=== PATIENT | male | born 1945 | race Caucasian/White ===

== ENCOUNTER 2017-12-06 13:17 | Observation (INO) | payer MEDICARE ==
[2017-12-06] MEDS ORDERED: Acetaminophen TAB* 325 MG PO PRN (14:22)
--- NOTE | 2017-12-06 15:03 | CONSULT ---
Subjective Date of Service: 12/06/17 Interval History: Date of consult 12/06/2017 Service: Hospitalist PMD: Wendy Ponce NP Calender Let Off Helper: Patient identifies as Dr. Juventino Andrade, has not seen in at least several years CC: N/V, vertigo Reason for consult: Bradycardia HPI. Mr. Murray is a 72 year old man admitted to [facility] 2 days ago with nausea vomiting and dizziness with low grade fever felt to be gastroenteritis. He was treated with fluids and anti-emetics. He was noted with sinus bradycardia to 40 bpm at the very lowest in overnight hours when expected to be sleeping and at some points during the day he had vomiting associated with lightheaded and sinus bradycardia into the 40's. There was no significant pauses or evidence of heart block. Aside from this episode he has felt well. 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 He is active in sports locally. At rest unprovoked his baseline heart rate seems to be sinus in the low 50's here when awake. Prior to this episode he has had no syncope, presyncope or unprovoked dizziness. He has no exertional chest discomfort. He sometimes has chest awareness at rest. He has had evaluations for chest discomfort multiple in the past. There is an EKG in the medical record from 11/2013 in which he had sinus bradycardia at 47 bpm so he has had longstanding sinus bradycardia that he has tolerated very well, he had sinus bradycardia on a 2005 ekg as well. He has had 3 cardiac catheterizations in the past and has seen Dr. Andrade in the past. He is not currently on an aspirin and statin. An echocardiogram today showed normal LV size and function with no significant valvular disease. Pmhx Hypothyroidism BPH GERD Depression PTSD CAD, last angiogram 2004 Dr. Andrade LAD mid bridge, distal 50% lad lesion, 30% RCA lesion, last unremarkable chest discomfort normal dobutamine stress echo 2011. Soc Hx: no tobacco use or excessive alcohol use, x 4 years. Vietman allergies: nkda family hx: non-contributory Medications Active Medications: Acetaminophen (Tylenol Tab*) 650 mg PO Q4H PRN PRN Reason: FEVER/PAIN Heparin Sodium (Porcine) (Heparin Vial(*)) 5,000 units SUBCUT Q8HR DENNIS Sodium Chloride (Ns 0.9% 1000 Ml*) 1,000 mls @ 100 mls/hr IV PER RATE DENNIS Levothyroxine Sodium (Synthroid Tab*) 175 mcg PO 0600 DENNIS Omeprazole (Prilosec Cap*) 20 mg PO DAILY DENNIS Sertraline HCl (Zoloft*) 25 mg PO DAILY DENNIS Tamsulosin HCl (Flomax Cap*) 0.4 mg PO DAILY [facility] Home Medications: Omeprazole CAP* [Prilosec CAP*] 20 mg PO DAILY 09/12/13 [History Confirmed 12/06] Tamsulosin CAP* [Flomax CAP*] 0.4 mg PO DAILY 09/12/13 [History Confirmed ] Levothyroxine TAB* [Synthroid TAB*] 175 mcg PO DAILY 12/06/17 [History Confirmed 12/06/17] Sertraline* [Zoloft*] 25 mg PO DAILY 12/06/17 [History Confirmed 12/06/17] Review of Systems - Measurements Intake and Output: Intake and Output Last 24 Hours 12/04/17 12/05/17 12/06/17 12/07/17 06:59 06:59 06:59 06:59 Intake Total 0 Balance 0 Weight 203 lb 8 oz Intake: Oral 0 - Review of Systems Constitutional Symptoms: Negative: Weight Gain, Weight Loss, Fatigue Dermatology: Negative: Rash, Skin Lesions HEENT: Negative: Change in Hearing, Vertigo Eyes: Negative: Change in Vision, Double Vision Thyroid: Negative: Heat Intolerance, Sweatiness, Constipation, Palpitations, Weight Loss, Weight Gain Pulmonary: Negative: Cough, Sputum, Hemoptysis, Wheezing, Respiratory Distress, Shortness of Breath, COPD Cardiology: Negative: Shortness of Breath, Palpitations, Swelling of Ankles, Peripheral Vascular Dis, Edema, Syncope, Claudication, Paroxysmal Nocturnal Dyspnea, Orthopnea Gastroenterology: Positive: Abdominal Pain, Nausea, Vomiting Genital - Urinary: Negative: Dysuria, Hematuria Musculoskeletal: Negative: Joint Pain, Joint Stiffness Endocrinology: Negative: Obesity, Diabetes, Polydipsia, Polyuria Hematologic/Lymphatic: Negative: Hx Leukemia, Hx Lymphoma, Use of Anticoagulant, Use of Antiplatelet Drugs Neurology: Negative: Diplopia, Dizziness, Change in Speech, Unexplained Weakness, Hx of Stroke\TIA Psychiatry: Negative: Unusual Anxiety, Suicidal Ideation Allergic/Immunologic: Negative: Hx HIV, Immunocompromise Review of Systems Statement: All other review of systems negative, unless stated above. Objective Vital Signs: Temp Pulse Resp BP Pulse Ox 98.3 F 73 16 141/75 95 12/06/17 14:40 12/06/17 14:40 12/06/17 14:40 12/06/17 14:40 12/06/17 14:40 Oxygen Devices in Use Now: None Appearance: nad, pleasant Ears/Nose/Mouth/Throat: Clear Oropharnyx Neck: NL Appearance and Movements; NL JVP, Trachea Midline Respiratory: Symmetrical Chest Expansion and Respiratory Effort, Clear to Auscultation Cardiovascular: NL Sounds; No Murmurs; No JVD, RRR, No Edema Abdominal: NL Sounds; No Tenderness; No Distention Extremities: No Edema Skin: No Rash or Ulcers Neurological: Alert and Oriented x 3 Laboratory Results: 12/04/2017 na 142, k 4.1, cr 1.1 glucose 144 lfts normal wbc 11.3, hgb 16.3, plts 268 12/05/2017 cTnI 0.009 with ck-mb 1.9 tsh 2.15 08/2017 labs tri 97, tchol 181, ldl 124, hdl 38 hgba1c 5.7 EKG Data: ekg sinus bradycardia 57 bpm, no acute findings ekg 11/2005: sinus bradycarda 56 bpm Assessment/Plan It appears patients episodes are related to a vagal response from vomiting. He has no syncope now or as an outpatient and his longstanding sinus bradycardia is otherwise stable except transiently worse during these episodes. I would focus evaluation and treatment on his GI illness. A pacemaker is not indicated. Regarding his CAD, I would start aspirin 81 mg po daily. He does not want to take a statin at this time. He says he is going to call Dr. Andrade' s office next week to make an appointment because he has not seen him in awhile. Thank you for allowing me to participate in the cardiovascular care of this patient. Please do not hesitate to contact me with questions or concerns.
--- NOTE | 2017-12-06 15:14 | RAD ---
Indication: RIGHT lower lobe wheezing. COPD. Cardiac disease. Comparison: May 02, 2010 Technique: Upright AP 1444 hours Report: Elevated lung volumes. No focal pulmonary lesion, compelling alveolar consolidation, pleural effusion, pneumothorax. The heart, pulmonary vasculature, and mediastinal contours are unremarkable. IMPRESSION: #. Stigmata of obstructive lung disease. No acute pulmonary or cardiac process evident.
--- NOTE | 2017-12-06 16:00 | HP ---
CC: Wendy Ponce NP; Dr. Troy; Dr. Zapata * HISTORY AND PHYSICAL: DATE OF ADMISSION: 12/06/17 PRIMARY CARE PROVIDER: Wendy Ponce NP ATTENDING PHYSICIAN WHILE IN THE HOSPITAL: Swetha Canseco MD * (report dictated by Smith Hunter NP) CONSULTING CARDIOLOGISTS: Dr. Troy and Dr. Zapata CHIEF COMPLAINT: 1. Bradycardia. 2. Nausea, vomiting. HISTORY OF PRESENT ILLNESS: Mr. Murray is a 72-year-old male patient. He has a history of hypothyroidism, hypertension, GERD, BPH, history of skin cancer, and a history of prolonged grief disorder. He is coming in from [facility] today under direct admission. He initially presented to [facility] on 12/04/17, with complaints of nausea and vomiting. He says to me that he has had episodes of nausea and vomiting intermittently pretty much on a yearly basis that does resolve on its own; however, this episode of nausea and vomiting was different in the sense that he woke up on Saturday, he had an episode, he was very nauseous , he felt dizzy, his symptoms were present for about 12 hours prior to coming into the [facility]. He said prior to this he had been feeling well. He has not had any abdominal pain. No nausea or vomiting. No chest pain. He denied any chest pain at all. He says he felt dizzy. He denied having any shortness of breath. No recent cough, fevers, or chills and he denied having any diarrhea. He said his last normal bowel movement actually was this morning prior to transfer. He was evaluated at [facility], he was admitted for intractable nausea and vomiting. He refused CT brain at that point and since being at [facility] he has had intermittent issues of nausea and vomiting and dizziness. He denied chest pain to me, but yesterday it was noted that he was bradycardic down as low as in the upper 30s. The patient says that he has had intermittent episodes of dizziness and lightheadedness. He denied having any chest pain or shortness of breath. He has episodes of nausea this morning, but he says it got better when he ambulated and tried walking. He does admit to having a weight loss over the last year, he says over 100 pounds. He denies having any dysuria, frequency, or any other symptoms. He has had just nausea and vomiting and no abdominal discomfort. Because of the bradycardia, we were asked to evaluate for admission and have a cardiology consult for possible pacemaker. PAST MEDICAL HISTORY: Significant for: 1. Hypothyroidism. 2. Hypertension. 3. GERD. 4. Prolonged grief disorder. 5. History of skin cancer. 6. BPH. PAST SURGICAL HISTORY: He has had heart catheterization with Dr. Andrade in 2004. No other surgeries. MEDICATIONS: Home meds according to the list that was provided include: 1. Synthroid 175 mcg p.o. daily. 2. Zoloft 25 mg daily. 3. Prilosec 20 mg daily. 4. Flomax 0.4 mg p.o. daily. ALLERGIES TO MEDICATIONS: No known drug allergies. FAMILY HISTORY: Both his parents had coronary artery disease. SOCIAL HISTORY: He is a former smoker. He does not drink alcohol. The surrogate decision maker is his daughter. REVIEW OF SYSTEMS: There is no documented fever. He did admit to having a significant weight change. He denies having any double vision. He denies having any ear discharge. There was no rhinorrhea, no sore throat. No thyroid enlargement. Denies having any chest pain. He did admit to feeling dizzy. No shortness of breath, no orthopnea, no nocturnal dyspnea. He denied any abdominal pain. There was nausea with vomiting. There is no dysuria. There is no frequency. No seizure. He denied having any loss of consciousness. Review of 14 systems was completed, all others negative. PHYSICAL EXAMINATION GENERAL: At this time, Mr. Murray is a 72-year-old male patient. He appears to be well-nourished and well-developed. He is sitting in the ED stretcher. He does not appear to be in any acute distress. VITAL SIGNS: Blood pressure 141/75 with a pulse of 73, his pulse on tele now is 61; respirations were 16; O2 sat 95%; temperature 98.3. HEENT: Head: Atraumatic and normocephalic. Eyes: EOMs are intact. Sclerae anicteric and not pale. Throat: Oral mucosa appears to be moist. No oropharyngeal erythema. NECK: Supple. LUNGS: He did have some wheeze noted in the right lower base. He had equal diaphragmatic expansion. HEART: Sounds S1, S2. He had a regular rate and rhythm. No murmurs, rubs, or gallops. ABDOMEN: Soft, flat, nontender. Bowel sounds were present. EXTREMITIES: Pulses were 2+ throughout. He is moving all 4 extremities with 5/ 5 strength. NEUROLOGICAL: The patient is awake. He is alert and he is oriented x3. His tongue is midline. His transformation consultant were equal. He had no gross focal deficits. SKIN: Grossly intact. DIAGNOSTIC STUDIES/LAB DATA: I have these from [facility]. His WBC today was 12.61, on admission it was 11.13; his hemoglobin was 14.6; hematocrit was 43; platelet count of 211. Urine showed 2+ blood, 5 to 10 RBCs. Sodium was 140, potassium 3.6, chloride of 106, bicarb was 24, BUN 10, creatinine of 1, lactic 1.4, calcium 8.2. His CK was 109, CK-MB 1.9, troponin 0.09. TSH was 2.15. He had a chest x-ray, which showed mild hyperinflation, otherwise negative portable x-ray that was done yesterday. He does have rhythm strips noted in the chart that do show a sinus bradycardia happening mostly at nighttime. These are one of the strips that are reported from. Old medical records were reviewed. ASSESSMENT AND PLAN: Mr. Murray is a 72-year-old male patient coming into our hospital today under direct transfer from [facility] for bradycardia. He will be admitted under observation status for: 1. Bradycardia. Again, etiology is unclear. His TSH is normal. I am going to check his repeat TSH, mag, and his potassium here. It could be certainly related to undiagnosed sleep apnea. I do think we should get an overnight pulse oximetry. I am going to get a 12-lead EKG now. Cardiology has been consulted. I do not see any medications contributing to this. It certainly could be contributing to his symptoms of dizziness so we will continue to monitor him on telemetry. I did order an echo. I will cycle his troponins and I am also going to check orthostatic blood pressures. 2. Nausea, vomiting. Again, it is concerning he has had unexplained weight loss so I did order a CT abdomen and pelvis, also a CT brain given the fact he has been having intermittent episodes of dizziness as well. He is asymptomatic now so I think we will continue to monitor him. We will wait for these imaging studies to come back and we will continue to follow. I will get amylase and lipase levels as well and I will check a CMP. 3. Leukocytosis. Again, etiology is unclear. I am going to panculture the patient. It could be leukemoid reaction from the nausea and vomiting. I do not have any obvious source of infection. We will continue to monitor this. 4. History of hypothyroidism. I will continue his Synthroid. His TSH was stable, we are repeating that today. 5. Hypertension. Blood pressure is stable. He is not on any antihypertensives. We will monitor. 6. Gastroesophageal reflux disease. Continue PPI therapy. 7. History of benign prostatic hypertrophy. Continue meds as prescribed. 8. History of prolonged grief disorder and depression. Continue with Zoloft. 9. Skin cancer. Follow up with his PCP. 10. DVT prophylaxis: I did order heparin subcu. 11. Code status: DNR. 12. Fluids, electrolytes, and nutrition: He is n.p.o. pending the CT abdomen and pelvis. We will continue to follow. The goal diet will be a heart-healthy diet. TIME SPENT: Time spent on the admission was approximately 60 minutes, greater than half the time was spent [id number] with the patient obtaining my history and physical, other half time was spent going over the plan of care with the patient and implementing the plan of care. I discussed the plan of care with my attending, Dr. Canseco, she is in agreement. SMITH HUNTER NP [id number]/[facility] #: [id number] [place]
--- NOTE | 2017-12-06 16:22 | ECHO ---
Patient: MELVA CLEMENS [facility] Rec#: [id number] : 1945 Date: 12/06/2017 Age: 72y Height: 185.42 cm / 73.0 in Weight: 92.53 kg / 203.9 lbs Sex: M BSA: 2.17 Room#: [facility] Admit Date#: 12/06/2017 Type: Inpatient Referring: Smith Hunter NP Reading: Marlo Troy DO Stuffer: Celia Watters RDCS CC: Wendy Ponce NP Transthoracic Echocardiogram Indication: Abnormal EKG BP: 141/75 HR: 50 Rhythm: Bradycardia Findings History: COPD, CAD, former smoker, hypothyroid. Technical Comments: The study quality is fair. Completed at 1600. Left Ventricle: The left ventricular chamber size is normal. Mild concentric left ventricular hypertrophy is observed. Global left ventricular wall motion and contractility are within normal limits. There is normal left ventricular systolic function. The estimated ejection fraction is 60-65%. Abnormal left ventricular diastolic function is observed. Left Atrium: The left atrium is mildly dilated. Right Ventricle: The right ventricular chamber size and systolic function are within normal limits. Right Atrium: The right atrial cavity size is normal. Aortic Valve: The aortic valve is trileaflet. The aortic valve leaflets are mildly thickened. There is a trace of aortic regurgitation. There is no evidence of aortic stenosis. Mitral Valve: The mitral valve leaflets are mildly thickened. There is trace to mild mitral regurgitation. There is no evidence of mitral stenosis. Tricuspid Valve: The tricuspid valve leaflets are normal. There is a physiologic tricuspid regurgitation. Unable to estimate the right ventricular systolic pressure. There is no tricuspid stenosis. Pulmonic Valve: The pulmonic valve appears normal. There is a trace pulmonic regurgitation. There is no pulmonic stenosis. Pericardium: There is no significant pericardial effusion. Aorta: There is mild dilatation of the ascending aorta. There is no dilatation of the aortic arch. The aortic root is normal in size. Pulmonary Artery: The main pulmonary artery is not well visualized. Venous: The inferior vena cava appears normal in size. There is a greater than 50% respiratory change in the inferior vena cava dimension. Conclusions The left ventricular chamber size is normal. Mild concentric left ventricular hypertrophy is observed. There is normal left ventricular systolic function. The estimated ejection fraction is 60-65%. Global left ventricular wall motion and contractility are within normal limits. The left atrium is mildly dilated. The right ventricular chamber size and systolic function are within normal limits. No significant valvular abnormalities noted None prior for comparison at time of interpretation Measurements Name Value Normal Range RVIDd (AP) 2D 3.7 cm (0.9 - 2.6) IVSd (2D) 1.3 cm (0.6 - 1) LVPWd (2D) 1.2 cm (0.6 - 1) LVIDd (2D) 5.3 cm (3.6 - 5.4) LVIDs (2D) 3.5 cm - LV FS (2D) 34 % (25 - 45) Aortic Annulus 2.3 cm (1.4 - 2.6) Ao root diameter (2D) 3.5 cm (2.1 - 3.5) Ascending Ao 3.7 cm (2.1 - 3.4) Aortic arch 2.9 cm (1.8 - 3.4) LA dimension (AP) 2D 3.6 cm (2.3 - 3.8) LAd ISD 4CH 5 cm (2.9 - 5.3) LA ISD 4CH W 4.3 cm (2.5 - 4.5) Name Value Normal Range LA ESV SP 4CH (A/L) 57 ml - LA ESV SP 2CH (A/L) 77 ml - LA ESV BP (A/L) 69 ml - LA ESV BP (A/L) index 32 ml/m2 - LA ESV SP 4CH (MOD) 46 ml - LA ESV SP 2CH (MOD) 74 ml - Name Value Normal Range MV E-wave Vmax 0.52 m/sec - MV deceleration time 344.2 msec - MV A-wave Vmax 0.64 m/sec - MV E:A ratio 0.8 ratio - LV septal e' Vmax 0.09 m/sec - LV lateral e' Vmax 0.07 m/sec - LV E:e' septal ratio 5.78 ratio - LV E:e' lateral ratio 7.14 ratio - Name Value Normal Range AV Vmax 1.2 m/sec - AV VTI 22.7 cm - AV peak gradient 5.66 mmHg - AV mean gradient 2.57 mmHg - LVOT Vmax 1.04 m/sec - LVOT VTI 19.41 cm - LVOT peak gradient 4.36 mmHg - LVOT mean gradient 2.01 mmHg - JOSSE Vmax 0.9 m/sec - Name Value Normal Range MR Vmax 5.6 m/sec - MR VTI 163.3 cm - MR flow (PISA) 26.6 ml/sec - MR ERO 0.05 cm2 - MR PISA radius 0.3 cm - MR alias Vmax 42.4 cm/sec - Name Value Normal Range IVC diameter 2 cm - Name Value Normal Range PV Vmax 1.07 m/sec - PV peak gradient 4.63 mmHg -
[2017-12-06 16:48] LABS: Hematocrit 46 % (42-52); Hemoglobin 15.2 g/dl (14.0-18.0); Mean Corpuscular HGB Conc 33 g/dl (31-36); Mean Corpuscular Hemoglobin 30 pg (27-31); Mean Corpuscular Volume 90 fL (80-94); Mean Platelet Volume 8.2 um3 (7.4-10.4); Platelet Count 209 10^3/ul (150-450); Red Blood Count 5.14 10^6/ul (4.00-5.40); Red Cell Distribution Width 15 % (10.5-15); White Blood Count 12.6 10^3/ul (3.5-10.8)
[2017-12-06 16:57] LABS: INR 0.94 (0.77-1.02)
[2017-12-06] MEDS: NS 0.9% 1000 ML* 1,000 ML IV SCH (17:15)
[2017-12-06 17:16] LABS: EGFR Non-African American 79.1 (>60)
[2017-12-06] MEDS ORDERED: Iohexol 300* (CONTRAST) 10 ML SDV IV ONE (17:23)
[2017-12-06 17:32] LABS: ABS Basophils 0.1 10^3/ul (0-0.2); ABS Eosinophils 0.1 10^3/ul (0-0.6); ABS Lymphocytes 6.5 10^3/ul (1.0-4.8); ABS Monocytes 0.3 10^3/ul (0-0.8); ABS Neutrophils 5.5 10^3/ul (1.5-7.7); ABS Nucleated RBC 0 10^3/ul; Eosinophil % 1.2 % (0-6); Lymphocyte % 51.4 % (25-47); Nucleated Red Blood Cells % 0.3
--- NOTE | 2017-12-06 17:58 | RAD ---
INDICATION: Nausea and vomiting COMPARISON: None TECHNIQUE: Axial source images were obtained from the hemidiaphragms to the symphysis pubis following administration of oral and intravenous contrast. 123 mL Omnipaque 300 was utilized. Coronal and sagittal reconstructed images were acquired. Lung bases: The lung bases are clear. Liver: The liver is normal in size. There are no masses. There is no ductal dilatation. Gallbladder: There are no calcified gallstones. There is no evidence of wall thickening or pericholecystic fluid. Spleen: The spleen is normal in size. There are no masses. Pancreas: There is no focal pancreatic mass or ductal dilatation. Adrenal glands: There is no evidence of adrenal mass. Kidneys: The kidneys are normal in size and position. There are prompt nephrograms and there is prompt excretion bilaterally. There are no renal parenchymal masses. There is no evidence of nephrolithiasis. Adenopathy: There is extensive retroperitoneal and mesenteric the masses are essentially confluent in the retroperitoneum. The largest individual mesenteric masses measure up to 6 cm. There is also bilateral leg and inguinal lymphadenopathy. Fluid collections: There are no free or localized fluid collections. Vessels:There are atherosclerotic changes involving the aorta and iliac vessels. There is no focal aneurysm. The IVC appears normal. GI tract: There are no acute CT bowel findings. There is no obstruction. The stomach and small bowel appear normal. There are moderate diverticula of the descending and sigmoid colon. There are no CT findings of acute diverticulitis Pelvic organs: The prostate is enlarged and impresses upon the floor the bladder. Transverse prostate measurements are 4.9 x 6.6 cm Bladder: There are no intrinsic bladder masses. There is extrinsic mass effect on the floor the bladder produced by the enlarged prostate Abdominal and pelvic soft tissues: The extraperitoneal abdominal and pelvic soft tissues appear normal.. Osseous structures: There are no acute osseous findings. Other: None IMPRESSION: EXTENSIVE INFRADIAPHRAGMATIC LYMPHADENOPATHY. LYMPHOMA IS A PRIMARY DIAGNOSTIC CONSIDERATION.
--- NOTE | 2017-12-06 17:59 | RAD ---
INDICATION: Dizziness COMPARISON: CT brain September 22, 2004 TECHNIQUE: Noncontrast axial source images were acquired from the skull base to the vertex. FINDINGS: Ventricles/sulci: The ventricles and cisterns are normal in size and configuration for age. Brain parenchyma: There is no focal parenchymal finding, evidence of intracranial mass, or intracranial mass effect. Intracranial hemorrhage:None. Extra-axial spaces: There are no abnormal extra axial fluid collections or evidence of extra-axial mass. Calvarium: There is no calvarial fracture or other calvarial abnormality. Scalp: There is no evidence of scalp or extracalvarial soft tissue abnormality. Paranasal sinuses/mastoid: The paranasal sinuses and mastoid air cells are clear. Other: None. IMPRESSION: NO ACUTE INTRACRANIAL FINDINGS
[2017-12-06] MEDS: Aspirin EC TAB* 81 MG TAB.EC PO SCH (18:06)
[2017-12-06 20:40] LABS: Urine Appearance Clear; Urine Blood 2+ (Negative); Urine Color Straw; Urine Ketones Negative (Negative); Urine Protein Negative (Negative); Urine Red Blood Cell Trace(0-2/hpf) (Absent); Urine Urobilinogen Negative (Negative); Urine White Blood Cell Trace(0-5/hpf) (Absent)
--- NOTE | 2017-12-06 23:11 | PN ---
Hospitalist Progress Note Date of Service: 12/06/[address] abd of extensive adenopathy finding discussed finding with patient placed oncology consult, will need biopsy.
[2017-12-07] MEDS: Heparin VIAL(*) 5000 UNITS/ML VIAL (FIVE THOUSAND) SUBCUT SCH ×2 (00:54→05:21)
[2017-12-07] MEDS: NS 0.9% 1000 ML* 1,000 ML IV SCH (04:12)
[2017-12-07 05:31] LABS: ABS Basophils 0.1 10^3/ul (0-0.2); ABS Eosinophils 0.2 10^3/ul (0-0.6); ABS Lymphocytes 4.8 10^3/ul (1.0-4.8); ABS Monocytes 0.3 10^3/ul (0-0.8); ABS Neutrophils 4.5 10^3/ul (1.5-7.7); ABS Nucleated RBC 0 10^3/ul; Eosinophil % 1.8 % (0-6); Hematocrit 41 % (42-52); Lymphocyte % 48.9 % (25-47); Mean Corpuscular HGB Conc 34 g/dl (31-36); Mean Corpuscular Hemoglobin 30 pg (27-31); Mean Corpuscular Volume 89 fL (80-94); Mean Platelet Volume 7.8 um3 (7.4-10.4); Nucleated Red Blood Cells % 0.4; Platelet Count 185 10^3/ul (150-450); Red Blood Count 4.65 10^6/ul (4.00-5.40); Red Cell Distribution Width 15 % (10.5-15); White Blood Count 9.8 10^3/ul (3.5-10.8)
[2017-12-07 05:46] LABS: EGFR Non-African American 67.4 (>60)
[2017-12-07] MEDS ORDERED: Levothyroxine TAB* 175 MCG TAB PO SCH (06:00)
[2017-12-07] MEDS: Aspirin EC TAB* 81 MG TAB.EC PO SCH (07:52)
[2017-12-07] MEDS ORDERED: Omeprazole CAP* 20 MG PO SCH (09:00)
[2017-12-07] MEDS ORDERED: Tamsulosin CAP* 0.4 MG PO SCH (09:00)
[2017-12-07] MEDS ORDERED: Sertraline* 25 MG TAB PO SCH (09:00)
[2017-12-07 12:08] LABS: Uric Acid 4.1 mg/dL (4.4-7.6)
[2017-12-07 12:16] VITALS: BP 149/70
--- NOTE | 2017-12-07 15:05 | CONS ---
CC: Dr. Andrade; Wendy Ponce NP * MEDICAL ONCOLOGY/HEMATOLOGY CONSULTATION NOTE: DATE OF ADMISSION: 12/06/17. DATE OF CONSULT: 12/07/17. REASON FOR CONSULT: Adenopathy. HISTORY OF PRESENT ILLNESS: Mr. Murray is a 72-year-old male. He reports many years of intermittent episodes of nausea and vomiting when all the way back to when in college in 1981. He has maybe a couple of episodes per year. This year , these episodes have been slightly more frequent. Three days prior to admission, he had an episode when he got nauseous and dizzy. The day of admission, he presented to [facility] with what seemed to be almost intractable nausea and vomiting. He received Zofran with some improvement. His dizziness and lightheadedness were slightly improved. He did have an episode of bradycardia down into the 30s associated with the dizziness and lightheadedness. He was subsequently evaluated for his bradycardia by Dr. Troy of Cardiology. It was felt that this was likely vagal and related to episodes of nausea and vomiting. He has had sinus bradycardia in the past. He has had 3 previous cardiac catheterizations most recently in 2004 all of which were without significant abnormalities. He was not told by Dr. Troy that the episodes of bradycardia were of significance beyond being vagal from the vomiting. The patient had told Smith Hunter NP, that he had lost about approximately 100 pounds over 1 year. On more careful questioning, the patient reports that his was diagnosed with breast cancer approximately 10 years ago. She of her breast cancer about 4 years ago. He reports his weight was 280 pounds at the time his had passed. He had gained lots of weight due to a grief disorder in regard to his 's metastatic breast cancer. Reports that 1 year ago, his weight was down to 213. Weight at the hospital today reported at 203 pounds. Therefore a 10-pound weight loss from the last year. He denies any abdominal or back pain. He does report that he had symptoms back in September 2017 for which a workup was done at [facility] including MRI of the brain, carotid Dopplers, and CT scan of the chest, abdomen and pelvis. These results were to be sent to Wendy Ponce, his primary care provider. It was not sure that she ever read these reports. It is unclear as to exactly what study he had and I am not totally convinced that these studies were actually obtained at that time. PAST MEDICAL HISTORY: 1. Hypothyroidism for many years, hypertension well controlled, GERD on medications, history of skin cancer. He reports 3 previous melanomas on his back. While looking at the scars, it appeared to be more either benign or non- melanoma skin cancer surgeries. He does follow with Dr. Staci Diaz of Dermatology. 2. Benign prostatic hypertrophy. 3. Multiple previous hospitalizations to Psychiatry in March 2014, August 2013 , January 2012 and October 2003. He carries a previous diagnosis of both prolonged grief disorder and depression. He adamantly denies any homicidal or suicidal ideation. 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 PAST SURGICAL HISTORY: Cardiac catheterization, Dr. Andrade, 2004 and 2 prior cardiac catheterizations, and umbilical hernia repair, 2005. MEDICATIONS AT HOME: 1. Synthroid 175 mcg daily. 2. Zoloft 25 mg daily. 3. Prilosec 20 mg daily. 4. Flomax 0.4 mg daily. Since hospital, started on aspirin 81 mg daily. ALLERGIES: None. FAMILY HISTORY: His brother, Xavier, had CLL, was cared for through our office and about 5 years ago. Reports that his mother had liver cancer, although she was cared through [facility], I see no records of this, at age 75. Father Issa, he reports was cured of cancer and at the age of 83, although I again I see no records through the [facility] system. , Sherri of breast cancer about 4 years ago. SOCIAL HISTORY: The patient lives alone with a service dog for therapy and 3 other dogs. He is a former smoker. 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 Denies ever having any alcohol. Surrogate decision maker is his daughter. 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 REVIEW OF SYSTEMS: No fevers, chills, sweats. Weight loss as discussed above. Denies any headaches or visual changes. Denies any chest pain, any significant shortness of breath or palpitations. Episodes of dizziness as described above. Nausea and vomiting as described above. No abdominal pain. No significant change in bowel or bladder habits. No significant heartburn on medications. No urinary symptoms. Review of systems is otherwise negative except as discussed above. PHYSICAL EXAM: A 72-year-old male in no acute distress. Vital Signs: Blood pressure 116/66, pulse 48; earlier in the hospitalization having been mostly slightly higher and as noted above, more bradycardic at [place]. Afebrile. HEENT: PERRL. EOMI. No erythema or exudates. No palpable cervical or supraclavicular or inguinal adenopathy. Does have bilateral axillary adenopathy approximately 2 cm bilaterally along with some fat pads in the axilla. Heart: Regular rate and rhythm without murmurs, rubs or gallops. Lungs : Clear. Abdomen: Soft, nontender without masses or organomegaly. Extremities : No clubbing, cyanosis or edema. Back: No CVA or spinal tenderness. Evidence of previous skin biopsies in the back but no melanoma excision looking scars. Neurologic exam without focal deficits. LABORATORY STUDIES: CBC: White count 9800, H and H 41/14, platelet count 285, 000 with essentially normal differential, although it is slightly lymphocyte predominant. Chemistry studies: Sodium 142, potassium 3.7, chloride 109, bicarb 27, BUN 12, creatinine 1.08, glucose 139, total bili of 1.1 with normal ALT, AST, and alkaline phosphatase. IMAGING STUDIES: CT scan obtained on 12/06/[address] scan of the brain, which was done without contrast and was unremarkable. CT scan of the abdomen and pelvis done with IV and oral contrast revealed extensive retroperitoneal mesenteric adenopathy that are almost confluent in the retroperitoneum, up to 5 to 6 cm. There is a report of bilateral inguinal adenopathy, which is not concerning on my review of the CT scan or review of one of radiologists covering today. There is shotty inguinal and iliac adenopathy only. There are not significant abnormalities at the lung bases, adrenal gland, liver, or spleen. There is an enlarged prostate; this compresses the bladder somewhat. IMPRESSION: A 72-year-old male with intermittent episodes of nausea and vomiting going back many years and slightly worse recently. Initial report of a 100-pound weight loss recently, although this appears to be much more chronic than that. Weight loss from last year per the patient is only about 10 pounds. He does not have any B symptoms; specifically, no night sweats, no fevers, no major weight loss in the past year. He does not have any pruritus or rashes. The CT scan looks very suspicious for malignancy particularly suspicious for the possibility of a lymphoma. He will certainly need a further workup. Laboratory studies to be added will include LDH and uric acid. CT scan of the chest will be important to obtain. Obtaining previous imaging, especially if he truly did have CT chest, abdomen and pelvis in August from [facility] would be important. He will require a biopsy of one of the lymph nodes. Biopsy of an axillary lymph node would certainly be reasonable. If this for some reason were not to be of answers, some of the retroperitoneal lymph nodes, looking at it, could be accessed either on the right or on the left through a retroperitoneal approach. It was discussed with the patient that there is a high likelihood that this is malignant, although we are not sure if it is lymphoma or some other cause. At the present time, his symptoms have totally resolved from that of admission. His wishes to not complete the workup as an inpatient, but to do this as an outpatient. He seems as though he is quite motivated to continue to workup as an outpatient. He reports he has lots of free time this next week as he is retired. The choices were also discussed with Dr. Cox of the hospitalist service and a decision will be made by them as to continue to workup as an inpatient versus going home and completing it as an outpatient. In summary, high suspicion for lymphoma or other malignancy. Recommendations: 1. LDH and uric acid. 2. Obtain notes and films from [facility]. 3. CT scan of the chest with contrast. 4. Lymph node biopsy. [id number]/[facility] #: [id number] [facility]ITAL[facility]
--- NOTE | 2017-12-07 21:38 | DS ---
DISCHARGE SUMMARY: DATE OF ADMISSION: 12/06/17 DATE OF DISCHARGE: 12/07/17 ADMITTING PROVIDER: Smith Hunter NP PRIMARY CARE PHYSICIAN: Wendy Ponce NP ATTENDING PHYSICIAN ON DAY OF DISCHARGE: Manjit Cox MD CONSULTING CRADLE PLACER: Dr. Troy. CONSULTING PACKING CLERK/ONCOLOGIST: Efren Sanford MD CHIEF COMPLAINT: Nausea, vomiting; bradycardia. PRINCIPAL DIAGNOSES: Widespread lymphadenopathy concerning for potential lymphoma; stable sinus bradycardia. HISTORY OF PRESENT ILLNESS AND HOSPITAL COURSE: Edmund Murray is a 72-year-old male with past medical history of hypothyroidism, hypertension, GERD, BPH, skin cancer, prolonged grief disorder and sinus bradycardia on previous EKGs who presented to [facility] with a complaint of nausea and vomiting on . Please see H and P of Smith Hunter for full details, who reported that his nausea and vomiting was intermittent. This episode, he woke up, felt very nauseous, dizzy. He denied any shortness of breath or chest pain and presented to the [facility]. He initially refused CT brain. He was then noted to be bradycardic to as low as the high 30s with continued intermittent dizziness and lightheadedness. He then also attested to weight loss, which has been later determined to progressive over several years (70 pounds over 4 years) . Dr. Zapata actually helped to evaluate him at [facility] while he was there, but given the continued reported bradycardia, he was directly admitted to [facility] for further evaluation. This included a CT abdomen, pelvis with IV and p.o. contrast given his nausea and vomiting, which demonstrated extensive infradiaphragmatic lymphadenopathy with lymphoma as the primary diagnostic consideration. These were characterized as extensive retroperitoneal and mesenteric with the masses/lymph nodes essentially confluent in the retroperitoneum with the largest individual mesenteric mass measuring up to [address] Sanford consulted the patient the next day, had a long and kaiden discussion with the patient, on exam noted right axillary lymphadenopathy, which ANIKET, Wendy Ponce has been following over reportedly several years and patient attested this was likely a lipoma. He said it was nontender and did vary in size on occasion. The patient wanted to pursue further evaluation of his lymphadenopathy as an outpatient to be arranged with Dr. Sanford who agreed that was reasonable. The patient had of note a chest x- ray on 11/14/17 and may have been scheduled to get a CT chest at that time before he left (he states he waited 3 hours and became impatient and left). Dr. Sanford is recommending getting a CT chest with IV contrast. He was under the impression that the patient may have already received CT chest on 11/14/17 and was believed to be useful to compare it to. Regardless, he should have a CT chest with IV contrast as an outpatient to further characterize his lymphadenopathy. Dr. Sanford has obtained additional studies including LDH normal at 141, PSA of 2.693 (normal) and uric acid of 4.1. The patient was monitored on telemetry. He had heart rates in the 50s, he was asymptomatic, sinus bradycardia, resolved nausea. His white count on admission was 12.6 with 51.4% lymphocytes. His TSH was 1.91. He had negative blood cultures x1 day. He was afebrile throughout the admission. The patient was evaluated by Dr. Marlo Troy of Cardiology on hospital day #1, who had reviewed previous EKGs including from November 2013, which showed sinus navid of 47 beats per minute and sinus navid in 2005 as well. He started aspirin 81 mg daily and recommended followup with Dr. Juventino Andrade, his outpatient vice squad police officer, which he has not seen in many months, if not years DISCHARGE MEDICATIONS: Include: 1. Aspirin 81 mg daily (new). 2. Synthroid 175 mcg p.o. daily. 3. Omeprazole 20 mg p.o. daily. 4. Zofran 4 mg p.o. q.6 hours p.r.n. (new). 5. Sertraline 25 mg p.o. daily. 6. Tamsulosin 0.4 mg p.o. daily. FOLLOWUP: Please follow up with Dr. Efren Sanford calling his office on morning of 12/09/17 to schedule outpatient biopsy and CT scan of his chest (this CT scan was ordered in [facility], but there are known issues with ordering imaging studies as an inpatient to be completed as an outpatient). He should also follow up with nurse practitioner, Wendy Ponce, within 7 days of discharge and Dr. Juventino nAdrade within 3 to 4 weeks of discharge. TIME SPENT: On discharge 35 minutes. [id number]/[facility] #: [id number] [facility]
== END 2017-12-07 13:00 | disposition home or self-care (01) ==
LOC: MEDTELE 13:18 → INTOOBSV 13:18
PROVIDERS: ADMIT Internal Medicine; ATTEND Internal Medicine
DX: R00.1 Bradycardia, unspecified (principal); R11.2 Nausea with vomiting, unspecified; Z86.39 Personal history of other endocrine, nutritional and metabolic disease; I10 Essential (primary) hypertension; K21.9 Gastro-esophageal reflux disease without esophagitis; F43.29 Adjustment disorder with other symptoms; N40.0 Benign prostatic hyperplasia without lower urinary tract symptoms; D72.829 Elevated white blood cell count, unspecified; F43.10 Post-traumatic stress disorder, unspecified; Z95.5 Presence of coronary angioplasty implant and graft
CPT/HCPCS: 36415; 70450; 71045; 74177; 80048; 80053; 81003; 81015; 82150; 83615; 83690; 83735; 84153; 84443; 84484; 84550; 85025; 85610; 85730; 87040; 87086; 93005; 93306; 94762; A9270-GY; G0103; G0378; Q9967

== ENCOUNTER 2017-12-31 08:51 | Day surgery (SDC) | payer MEDICARE, BC ==
[~2017-12-31 08:51] MED LIST: Buffered Lidocaine 0.9% SYRIN* 5 ML/SYR SYRINGE INTRADERM ONE; Famotidine IV* 10 MG/ML 2 ML (20 mg) IV ONE
[2017-12-31] MEDS ORDERED: Famotidine IV* 10 MG/ML 2 ML (20 mg) ONE (09:47)
[2017-12-31] MEDS ORDERED: fentaNYL* 50 MCG/ML 2 ML VIAL (100 MCG VIAL) ONE ×2 (10:05→11:39)
[2017-12-31] MEDS ORDERED: Midazolam* 1 MG/ML 5 ML VIAL (5 MG) ONE (10:05)
[2017-12-31] MEDS ORDERED: Lidocaine 1% INJ* 10 MG/ML 30 ML SDV ONE (11:14)
[2017-12-31] MEDS ORDERED: Bupivacaine 0.25% W/EPI* 10 ML SDV ONE (11:15)
[2017-12-31] MEDS ORDERED: KETAMINE HCL* 50 MG/ML 10 ML VIAL ONE (11:37)
[2017-12-31] MEDS ORDERED: Dexamethasone IV* 4 MG/ML 1 ML (4 MG) ONE (11:38)
[2017-12-31] MEDS ORDERED: Ondansetron INJ* 2 MG/ML VIAL ONE (11:38)
[2017-12-31] MEDS ORDERED: Lidocaine 2% PF * 5 ML VIAL ONE (11:38)
[2017-12-31] MEDS ORDERED: Ketorolac INJ* 30 MG/ML 1 ML VIAL ONE (11:38)
[2017-12-31] MEDS ORDERED: Propofol* 10 MG/ML 20 ML BTL IV PUSH ONE (11:38)
[2017-12-31] MEDS ORDERED: DiMENhydriNATE IV* 50 MG/ML VIAL IV PUSH PRN (11:57)
[2017-12-31] MEDS ORDERED: Acetaminophen TAB* 325 MG PO PRN (11:57)
[2017-12-31] MEDS ORDERED: oxyCODONE TAB* 5 MG TAB PO PRN (11:57)
[2017-12-31] MEDS ORDERED: Naloxone* 0.4 MG/ML 1 ML VIAL IV PRN (11:57)
--- NOTE | 2017-12-31 12:24 | BRIEFOPN ---
Brief Operative Note - Surgery Procedures: Preoperative dx: Left axillary lymph node enlargement. Postoperative dx: Same. Procedure: L axillary lymph node bx. Anesthesia: MAC. Surgeon: MD Josh. Assist: DUKE Arteaga. EBL: Less than 50 ml. Fluids: 1100 LR. Specimen: L axillary lymph node. Findings: Dictated.
[2017-12-31 12:58] VITALS: BP 101/67
--- NOTE | 2018-01-01 00:31 | OP ---
CC: Wendy Ponce NP; Dr. Efren Sanford OPERATIVE REPORT: DATE OF OPERATION: 12/31/17 DATE OF : 47 SURGEON: Murray Moreno MD CASE WORKER: None. ANESTHESIA: General. ANESTHESIOLOGIST: Dr. Laguerre. PRE-OP DIAGNOSIS: Left axillary lymphadenopathy. POST-OP DIAGNOSIS: Left axillary lymphadenopathy. OPERATIVE PROCEDURE: Excisional biopsy of left axillary lymph node. ESTIMATED BLOOD LOSS: Minimal. IV FLUIDS: Crystalloid specimen into left axial lymph node. DRAINS: None. COMPLICATIONS: None. COUNTS: Instrument, needle, and sponge counts were correct. DESCRIPTION OF THE PROCEDURE: The patient was brought to the operating room and placed on the table supine. Left arm was extended laterally. After the patient had been administered general anesthesia the site was prepped and draped in usual sterile fashion. Time-out was performed. Local anesthetic was infiltrated into the lower axillary skin and a curvilinear incision was created. The subcutaneous tissues were divided with cautery and axillary fat was entered using blunt dissection. Several enlarged lymph nodes were palpable. The node excised was approximately 3 cm x 3 cm x 2 cm. Dissection was performed bluntly with surgical clips used to occlude any small lymphatics or vessels before dividing them sharply. Once the lymph node was entirely freed it was submitted to pathology. Hemostasis was assured and then the wound was closed in 2 layers with 3-0 Vicryl for the subcutaneous tissue and 4-0 Monocryl for the skin. Steri-Strips were applied. He was awakened and transferred to recovery room in stable condition. [id number]/[facility] #: [id number] [facility]
== END 2017-12-31 13:05 | disposition home or self-care (01) ==
LOC: OR 08:51
PROVIDERS: ATTEND Surgery
CPT/HCPCS: 88184; 88187; 88188; 88189; 88305; 88333; 88341; 88342; 88360; J1100; J1885; J2250; J2405; J2704; J3010

== ENCOUNTER 2018-06-05 15:14 | Inpatient (IN) | payer MEDICARE, BC ==
[2018-06-05] MEDS ORDERED: Ondansetron ODT TAB* 4 MG PO PRN (15:52)
[2018-06-05] MEDS ORDERED: Prochlorperazine TAB* 10 MG PO PRN (15:53)
[2018-06-05] MEDS ORDERED: LORazepam INJ* 2 MG/ML 1 ML VIAL IV PUSH PRN (15:54)
[2018-06-05] MEDS ORDERED: Enoxaparin(*) 40 MG/0.4 ML SYR SUBCUT SCH (16:00)
[2018-06-05] MEDS: NS 0.9% 1000 ML** 1,000 ML IV SCH (17:04)
[2018-06-05] MEDS: Meclizine TAB* 12.5 MG PO SCH ×2 (17:07→21:21)
[2018-06-05 18:01] LABS: ABS Basophils 0 10^3/ul (0-0.2); ABS Eosinophils 0 10^3/ul (0-0.6); ABS Lymphocytes 0 10^3/ul (1.0-4.8); ABS Monocytes 0.1 10^3/ul (0-0.8); ABS Neutrophils 2.9 10^3/ul (1.5-7.7); ABS Nucleated RBC 0 10^3/ul; Eosinophil % 0 %; Hematocrit 43 % (42-52); Hemoglobin 14.3 g/dl (14.0-18.0); Lymphocyte % 0.7 %; Mean Corpuscular HGB Conc 33 g/dl (31-36); Mean Corpuscular Hemoglobin 33 pg (27-31); Mean Corpuscular Volume 100 fL (80-94); Nucleated Red Blood Cells % 0; Platelet Count 159 10^3/ul (150-450); Red Blood Count 4.32 10^6/ul (4.00-5.40); Red Cell Distribution Width 16 % (10.5-15)
[2018-06-05 18:22] LABS: Albumin 4.2 g/dL (3.2-5.2); Albumin/Globulin Ratio 1.9 (1-3); BUN/Creatinine Ratio 17.4 (8-20); EGFR African American 105.8 (>60); EGFR Non-African American 87.4 (>60); Globulin 2.2 g/dL (2-4); Potassium 3.9 mmol/L (3.5-5.0); Total Bilirubin 0.6 mg/dL (0.2-1.0); Total Protein 6.4 g/dL (6.4-8.9)
[2018-06-05] MEDS: Ondansetron INJ* 2 MG/ML VIAL IV PRN (21:21)
[2018-06-06] MEDS: Ondansetron INJ* 2 MG/ML VIAL IV PRN (05:41)
[2018-06-06] MEDS: Meclizine TAB* 12.5 MG PO SCH (05:41)
[2018-06-06] MEDS: NS 0.9% 1000 ML** 1,000 ML IV SCH (05:41)
[2018-06-06] MEDS ORDERED: Levothyroxine TAB* 175 MCG TAB PO SCH (06:00)
[2018-06-06 07:00] LABS: ABS Basophils 0 10^3/ul (0-0.2); ABS Eosinophils 0 10^3/ul (0-0.6); ABS Lymphocytes 0.1 10^3/ul (1.0-4.8); ABS Monocytes 0.3 10^3/ul (0-0.8); ABS Neutrophils 3.7 10^3/ul (1.5-7.7); ABS Nucleated RBC 0 10^3/ul; Eosinophil % 0.3 %; Hematocrit 41 % (42-52); Hemoglobin 14.2 g/dl (14.0-18.0); Lymphocyte % 1.7 %; Mean Corpuscular HGB Conc 35 g/dl (31-36); Mean Corpuscular Hemoglobin 34 pg (27-31); Mean Corpuscular Volume 98 fL (80-94); Mean Platelet Volume 7.7 fL (7.4-10.4); Nucleated Red Blood Cells % 0; Platelet Count 152 10^3/ul (150-450); Red Blood Count 4.21 10^6/ul (4.00-5.40); Red Cell Distribution Width 16 % (10.5-15); White Blood Count 4.2 10^3/ul (3.5-10.8)
[2018-06-06 07:17] LABS: Albumin 3.9 g/dL (3.2-5.2); Albumin/Globulin Ratio 1.9 (1-3); BUN/Creatinine Ratio 16.2 (8-20); Calcium 9.2 mg/dL (8.6-10.3); EGFR African American 125.8 (>60); Globulin 2.1 g/dL (2-4); Potassium 3.6 mmol/L (3.5-5.0); Total Bilirubin 0.8 mg/dL (0.2-1.0)
[2018-06-06 07:59] VITALS: BP 143/78
[2018-06-06] MEDS ORDERED: Aspirin EC TAB* 81 MG TAB.EC PO SCH (09:00)
[2018-06-06] MEDS ORDERED: Pantoprazole TAB * 40 MG TAB PO SCH (09:00)
[2018-06-06] MEDS ORDERED: Tamsulosin CAP* 0.4 MG PO SCH (09:00)
[2018-06-06] MEDS ORDERED: Sertraline* 50 MG TAB PO SCH (09:00)
--- NOTE | 2018-06-06 09:19 | PN ---
Progress Note - Progress Note Date of Service: 06/06/18 SOAP: Subjective: []Better. Nausea improved overnight and feels fine this am, wants breakfast. Remembers feeling dizzy and nausea, no room spinning. No fevers. Never had similar event. No focal neurologic complaints this am. Aspirin (Aspirin Ec Tab*) [facility] Last Admin: 06/06/18 08:37 Dose: 81 mg Enoxaparin Sodium (Lovenox(*)) 40 mg SUBCUT Q24H [facility] Last Admin: 06/05/18 17:07 Dose: Not Given Sodium Chloride (Ns 0.9% 1000 Ml) 1,000 mls @ 100 mls/hr IV PER RATE [facility] Last Admin: 06/06/18 05:41 Dose: 100 mls/hr Levothyroxine Sodium (Synthroid Tab*) 175 mcg PO 0600 [facility] Last Admin: 06/06/18 05:41 Dose: 175 mcg Lorazepam (Ativan Inj*) 0.5 mg IV PUSH Q4H PRN PRN Reason: severe nausea Meclizine HCl (Antivert Tab*) 25 mg PO Q8HR [facility] Last Admin: 06/06/18 05:41 Dose: 25 mg Ondansetron HCl (Zofran Odt Tab*) 4 mg PO Q6H PRN PRN Reason: NAUSEA Ondansetron HCl (Zofran Inj*) 4 mg IV Q4H PRN PRN Reason: NAUSEA Last Admin: 06/06/18 05:41 Dose: 4 mg Pantoprazole Sodium (Protonix Tab*) 40 mg PO [facility] Last Admin: 06/06/18 08:37 Dose: 40 mg Prochlorperazine (Compazine Tab*) 10 mg PO Q6HR PRN PRN Reason: NAUSEA Sertraline HCl (Zoloft*) 50 mg PO [facility] Last Admin: 06/06/18 08:37 Dose: 50 mg Tamsulosin HCl (Flomax Cap*) 0.4 mg PO [facility] Last Admin: 06/06/18 08:37 Dose: 0.4 mg Objective: []Vital Signs Temp Pulse Resp BP Pulse Ox 98.0 F 59 17 143/78 97 06/06/18 07:22 06/06/18 07:22 06/06/18 08:00 06/06/18 07:22 06/06/18 07:22 HEENT: PALE, MM, NO NYSTAGMIS NEURO: CN 2-12 INTACT, NORMAL FINGER TO NOSE, GATE, RAPID MOVEMENT. CTA RRR S1S2 +BS NT ND EXT NO EDEMA Assessment: [Episode of nausea c/w vertigo, resolved and feels fine this am. Etiology remains unclear, viral, BPV, medication SE. Plan: []1. If eats good breakfast he can go home. 2. no further evaluation unless event occurs again. 3. Keep scheduled follow up Dr. Sanford
--- NOTE | 2018-06-06 12:03 | DS ---
DISCHARGE SUMMARY: DATE OF ADMISSION: 06/05/18 DATE OF DISCHARGE: 06/06/18 DISCHARGE DIAGNOSES: 1. Refractory nausea. 2. Chemotherapy for chronic lymphocytic leukemia. HOSPITAL COURSE: He was in clinic throughout the day yesterday after developing acute nausea and vom iting. He had nonstop nausea, then nonstop dry heaves. He was treated with IV dexamethasone, Compaz ine, and IV Ativan; none of which improved these symptoms. He had received Aloxi 2 days beforehand a nd he had taken Zofran 60 mg that morning. He was admitted after nothing else stopped his symptoms. He was admitted overnight with IV hydration. Symptoms subsided late in the night and this morning, he is feeling much better. Now back to baseline, feels like he needs a breakfast. He described dizz iness, but not room spinning. DIFFERENTIAL DIAGNOSES: 1. Viral syndrome. 2. Medication side effect. 3. Benign positional vertigo. 4. No evidence of stroke or structural disease. PHYSICAL EXAMINATION: Essentially unremarkable with full neuro exam showing no nystagmus. Normal ba [place], gait. Negative Romberg. Good [id number]. Rapid movement and eye motion. DISCHARGE MEDICATIONS: 1. Aspirin 81 mg a day. 2. Levothyroxine 175 daily. 3. Omeprazole 20 mg a day. 4. Ondansetron 4 mg q.6 p.r.n. 5. Zoloft 25 mg p.o. daily. 6. Flomax 0.4 daily. 7. He will continue the Bactrim, he has been on for chemotherapy. FOLLOWUP: Followup will be next week with Dr. Sanford as planned. He will call with any additional ep [facility]. [id number]/[facility] #: [id number]
== END 2018-06-06 11:10 | disposition home or self-care (01) | DRG 392 ==
LOC: MED 16:00
PROVIDERS: ADMIT Internal Medicine Hematology & Oncology; ATTEND Internal Medicine Hematology & Oncology
DX: R11.2 Nausea with vomiting, unspecified (principal); C91.10 Chronic lymphocytic leukemia of B-cell type not having achieved remission; B34.9 Viral infection, unspecified; T45.1X5A Adverse effect of antineoplastic and immunosuppressive drugs, initial encounter; Y92.538 Other ambulatory health services establishments as the place of occurrence of the external cause; F32.9 Major depressive disorder, single episode, unspecified; E03.9 Hypothyroidism, unspecified; Z87.891 Personal history of nicotine dependence; Z79.82 Long term (current) use of aspirin; Z79.899 Other long term (current) drug therapy; Z80.6 Family history of leukemia
CPT/HCPCS: 36415; 80053; 85025; 99220; 99238; A9270-GY; J1650; J2405

== ENCOUNTER 2018-10-19 18:17 | Emergency (ER) | payer MEDICARE, BC ==
[2018-10-19] MEDS ORDERED: NS 0.9% 1000 ML** 1,000 ML IV ONE ×2 (18:40→18:41)
[2018-10-19] MEDS ORDERED: Meclizine TAB* 12.5 MG PO ONE (18:41)
[2018-10-19] MEDS ORDERED: Ondansetron INJ* 2 MG/ML VIAL IV ONE (18:41)
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
[2018-10-19 19:44] LABS: ABS Eosinophils 0.1 10^3/ul (0-0.6); ABS Lymphocytes 0.2 10^3/ul (1.0-4.8); ABS Monocytes 0.7 10^3/ul (0-0.8); ABS Neutrophils 9.1 10^3/ul (1.5-7.7); Eosinophil % 1.4 %; Hematocrit 44 % (42-52); Hemoglobin 15.1 g/dL (14.0-18.0); Lymphocyte % 1.5 %; Mean Corpuscular HGB Conc 34 g/dL (31-36); Mean Corpuscular Hemoglobin 33 pg (27-31); Mean Corpuscular Volume 95 fL (80-94); Platelet Count 202 10^3/uL (150-450); Red Blood Count 4.66 10^6 /uL (4.18-5.48); Red Cell Distribution Width 14 % (10-15); White Blood Count 10.1 10^3/uL (3.5-10.8)
[2018-10-19 19:48] LABS: INR 0.94 (0.82-1.09)
[2018-10-19 20:00] LABS: Albumin 4.3 g/dL (3.2-5.2); Albumin/Globulin Ratio 1.9 (1-3); BUN/Creatinine Ratio 16.3 (8-20); Calcium 9.5 mg/dL (8.6-10.3); EGFR Non-African American 75.2 (>60); Globulin 2.3 g/dL (2-4); Potassium 4.6 mmol/L (3.5-5.0); Total Bilirubin 0.4 mg/dL (0.2-1.0); Total Protein 6.6 g/dL (6.4-8.9)
[2018-10-19 21:00] LABS: Urine Appearance Clear; Urine Bilirubin Negative (Negative); Urine Blood Negative (Negative); Urine Color Yellow; Urine Glucose Negative (Negative); Urine Ketones Negative (Negative); Urine Nitrite Negative (Negative); Urine Protein Negative (Negative); Urine Specific Gravity 1.015 (1.010-1.030); Urine Urobilinogen Negative (Negative)
[2018-10-19] MEDS ORDERED: Aspirin TAB* 325 MG PO ONE (21:39)
[2018-10-19 21:51] VITALS: BP 154/83
== END 2018-10-19 21:50 | disposition home or self-care (01) ==
LOC: ED 18:17
DX: R42 Dizziness and giddiness (principal); T67.5XXA Heat exhaustion, unspecified, initial encounter; X58.XXXA Exposure to other specified factors, initial encounter; E11.9 Type 2 diabetes mellitus without complications; I25.10 Atherosclerotic heart disease of native coronary artery without angina pectoris; I10 Essential (primary) hypertension; J44.9 Chronic obstructive pulmonary disease, unspecified; F17.290 Nicotine dependence, other tobacco product, uncomplicated
CPT/HCPCS: 36415; 70450; 80053; 81003; 83605; 84484; 85025; 85610; 93005; 96361; 96374; 99283; A9270-GY; J2405

== ENCOUNTER 2021-02-13 10:50 | Inpatient (IN) ==
[2021-02-13 12:10] LABS: Hematocrit 26 % (42-52); Hemoglobin 7.8 g/dL (14.0-18.0); Mean Corpuscular HGB Conc 31 g/dL (31-36); Mean Corpuscular Hemoglobin 22 pg (27-31); Mean Corpuscular Volume 73 fL (80-94); Platelet Count 211 10^3/uL (150-450); Red Cell Distribution Width 23 % (10-15); White Blood Count 26.4 10^3/uL (3.5-10.8)
[2021-02-13 12:19] LABS: ALT 62 U/L (7-52); AST 69 U/L (13-39); Albumin 2.2 g/dL (3.2-5.2); Albumin/Globulin Ratio 0.8 (1-3); Alkaline Phosphatase 565 U/L (35-149); Anion Gap 14 mmol/L (2-11); Blood Urea Nitrogen 48 mg/dL (6-24); CO2 Carbon Dioxide 24 mmol/L (22-32); Calcium 9.1 mg/dL (8.6-10.3); Chloride 103 mmol/L (101-111); Creatine Kinase 243 U/L (10-223); Globulin 2.6 g/dL (2-4); Glucose 99 mg/dL (70-100); Magnesium 2.4 mg/dL (1.9-2.7); Sodium 141 mmol/L (135-145); Total Protein 4.8 g/dL (6.4-8.9)
[2021-02-13 12:37] LABS: Polychromasia 1+; Target Cells 2+
[2021-02-13 12:38] LABS: ABS Neutrophils 25.8 10^3/ul (1.5-7.7)
[2021-02-13 12:39] LABS: ABS Lymphocytes 0.5 10^3/ul (1.0-4.8)
[2021-02-13] MEDS ORDERED: KCL 20 MEQ/100 ML IVPREMIX 20 MEQ/100 ML BAG IV ONE (13:06)
[2021-02-13 13:43] LABS: Urine Appearance Cloudy; Urine Bilirubin Negative (Negative); Urine Blood Negative (Negative); Urine Color Amber; Urine Glucose Negative (Negative); Urine Ketones Negative (Negative); Urine Nitrite Negative (Negative); Urine Protein 1+(30 mg/dL) (Negative); Urine Specific Gravity 1.018 (1.002-1.030); Urine Urobilinogen Positive (Negative)
[2021-02-13 13:47] LABS: Urine Bacteria Absent (Absent); Urine Red Blood Cell Trace(0-2/hpf) (Absent); Urine Squamous Epithelial Cell Present (Absent); Urine White Blood Cell Trace(0-5/hpf) (Absent)
[2021-02-13] MEDS ORDERED: Albuterol/Ipratropium NEB.SOL (2.5/0.5 MG) 3 ML NEB.SOLN INH PRN (16:26)
[2021-02-13] MEDS ORDERED: Albuterol 2.5mg/3 ml (0.083%) NEB.SOLN INH PRN (16:26)
[2021-02-13] MEDS ORDERED: Ondansetron ODT 4 mg TAB 4 MG TAB PO PRN (16:26)
[2021-02-13] MEDS ORDERED: Lactated Ringers 1000 ml BAG 1,000 ML IV ONE (16:34)
[2021-02-13 17:17] LABS: Rapid COVID-19 Molecular Undetected (Undetected)
[2021-02-13 17:32] LABS: Total Iron Binding Capacity 157 mcg/dL (250-450); Transferrin 112 mg/dL (203-362)
[2021-02-13 17:46] LABS: % Iron Saturation 13 % (15-55); Iron < 20 ug/dL (50-212); Unsaturated Iron Binding < 142 ug/dL
[2021-02-13 18:33] LABS: Ferritin 2289.8 ng/mL (24-336)
[2021-02-13] MEDS: Mometasone/Formoter 200/5 MDI INH SCH (20:20)
[2021-02-13] MEDS: Enoxaparin 40 MG/0.4 ML SYR SUBCUT SCH (20:59)
[2021-02-13] MEDS ORDERED: Benzocaine/Menthol LOZ PO PRN (21:07)
[2021-02-14 04:59] LABS: Hematocrit 22 % (42-52); Hemoglobin 6.7 g/dL (14.0-18.0); Mean Corpuscular HGB Conc 31 g/dL (31-36); Mean Corpuscular Hemoglobin 22 pg (27-31); Mean Corpuscular Volume 72 fL (80-94); Mean Platelet Volume 10.8 fL (7.4-10.4); Platelet Count 168 10^3/uL (150-450); Red Blood Count 3.06 10^6 /uL (4.18-5.48); Red Cell Distribution Width 23 % (10-15); White Blood Count 20.8 10^3/uL (3.5-10.8)
[2021-02-14 05:04] LABS: INR 1.71 (0.86-1.15)
[2021-02-14 05:11] LABS: Albumin/Globulin Ratio 1.1 (1-3); Calcium 8.4 mg/dL (8.6-10.3); Direct Bilirubin 3.5 mg/dL (0.03-0.18); Globulin 1.9 g/dL (2-4); Indirect Bilirubin 1.5 mg/dL (0.3-1.0); Potassium 3.2 mmol/L (3.5-5.0); Total Protein 3.9 g/dL (6.4-8.9)
[2021-02-14 05:12] LABS: ABS Monocytes 0.7 10^3/ul (0-0.8); ABS Neutrophils 19.1 10^3/ul (1.5-7.7); Nucleated Red Blood Cells % 0.1
[2021-02-14 05:13] LABS: Anisocytosis 2+; Microcytosis 2+
[2021-02-14 05:14] LABS: Hypochromasia 1+; Polychromasia 1+; Target Cells 2+
[2021-02-14] MEDS ORDERED: Potassium Chlor 20 meq TAB.ER PO ONE (07:15)
[2021-02-14] MEDS: Mometasone/Formoter 200/5 MDI INH SCH ×2 (07:51→22:14)
[2021-02-14 08:21] LABS: Magnesium 2.4 mg/dL (1.9-2.7)
[2021-02-14] MEDS ORDERED: Lactated Ringers 1000 ml BAG 1,000 ML IV SCH ×2 (10:00→18:00)
[2021-02-14 10:08] LABS: Immature Retic Fraction 0.59
[2021-02-14 10:10] LABS: Corrected Retic Count 1.9 % (0.5-1.5); Hematocrit for Retic CNT 22 % (42-52); RBC Retic Count 3.06 10^6/uL (4.18-5.48)
[2021-02-14 12:33] LABS: TSH Ultra Thyroid Stim Horm 0.89 mcIU/mL (0.34-5.60)
[2021-02-14 12:35] LABS: Free T4 0.59 ng/dL (0.61-1.12)
[2021-02-14 14:43] LABS: Urine Creatinine Concentration 82.05 mg/dL; Urine Sodium Concentration < 18 mmol/L
[2021-02-14 15:10] LABS: Hematocrit 24 % (42-52); Hemoglobin 7.7 g/dL (14.0-18.0)
[2021-02-14 16:12] LABS: Hepatitis B Surface Antigen Positive (Nonreactive)
[2021-02-14 16:18] LABS: Hepatitis A Ab IgM Negative (Negative); Hepatitis B Core IgM Nonreactive (Nonreactive)
[2021-02-14 16:30] LABS: Hepatitis C Antibody Negative (Negative)
[2021-02-14] MEDS: Enoxaparin 40 MG/0.4 ML SYR SUBCUT SCH (17:15)
[2021-02-14] MEDS ORDERED: Phytonadione Oral Solution 5 MG/25 ML UDC PO ONE (17:22)
[2021-02-15 00:54] LABS: Hepatitis B Surface Ab Not Immune (Immune)
[2021-02-15] MEDS ORDERED: Nitroglycerin 0.3 mg TAB SL ONE ×2 (01:52→02:58)
[2021-02-15 02:43] LABS: Troponin I 0.05 ng/mL (<0.03)
[2021-02-15 05:44] LABS: ABS Lymphocytes 0.5 10^3/ul (1.0-4.8); ABS Monocytes 0.5 10^3/ul (0-0.8); ABS Neutrophils 21.6 10^3/ul (1.5-7.7); Hematocrit 24 % (42-52); Hemoglobin 7.8 g/dL (14.0-18.0); INR 1.69 (0.86-1.15); Mean Corpuscular HGB Conc 32 g/dL (31-36); Mean Corpuscular Hemoglobin 23 pg (27-31); Mean Corpuscular Volume 72 fL (80-94); Red Blood Count 3.36 10^6 /uL (4.18-5.48); Red Cell Distribution Width 23 % (10-15); White Blood Count 22.6 10^3/uL (3.5-10.8)
[2021-02-15 06:05] LABS: ALT 69 U/L (7-52); AST 71 U/L (13-39); Albumin 1.9 g/dL (3.2-5.2); Albumin/Globulin Ratio 0.9 (1-3); Alkaline Phosphatase 775 U/L (35-149); Anion Gap 9 mmol/L (2-11); Blood Urea Nitrogen 47 mg/dL (6-24); CO2 Carbon Dioxide 25 mmol/L (22-32); Calcium 8.6 mg/dL (8.6-10.3); Chloride 105 mmol/L (101-111); Globulin 2.1 g/dL (2-4); Glucose 158 mg/dL (70-100); Indirect Bilirubin 2.1 mg/dL (0.3-1.0); Magnesium 2.2 mg/dL (1.9-2.7); Potassium 3.3 mmol/L (3.5-5.0); Sodium 139 mmol/L (135-145); Troponin I 0.05 ng/mL (<0.03)
[2021-02-15] MEDS ORDERED: Potassium Chlor 20 meq TAB.ER PO ONE (07:23)
[2021-02-15 07:51] LABS: Anisocytosis 2+; Hypochromasia 2+; Microcytosis 1+; Polychromasia 1+; Target Cells 2+
[2021-02-15 07:52] LABS: Mean Platelet Volume 10.1 fL (7.4-10.4); Platelet Count 133 10^3/uL (150-450)
[2021-02-15] MEDS: Mometasone/Formoter 200/5 MDI INH SCH ×2 (07:55→21:41)
[2021-02-15] MEDS ORDERED: Potassium Chloride IV 40 MEQ in Lactated Ringers 1000 ml BAG 1,000 ML IVPB SCH (08:00)
[2021-02-15] MEDS: KCL 10 MEQ/50 ML IVPREMIX 10 MEQ/50 ML BAG IV SCH ×3 (08:04→17:37)
[2021-02-15] MEDS ORDERED: Flu vaccine *QUAD* 2021-22* 0.5 ML SYRINGE IM ONE (09:00)
[2021-02-15] MEDS ORDERED: Piperacillin/Tazobac ADVAN 3.375 GM in NS 0.9% 100 ml BAG 100 ML IV ONE (13:49)
[2021-02-15] MEDS ORDERED: Zosyn per Pharmacy NOTE FOLLOW UP SCH (14:00)
[2021-02-15] MEDS ORDERED: fentaNYL 100 mcg/2 ml 50 MCG/ML VIAL ONE (14:34)
[2021-02-15 14:36] LABS: Troponin I 0.04 ng/mL (<0.03)
[2021-02-15 17:09] LABS: Troponin I 0.07 ng/mL (<0.03)
[2021-02-15] MEDS: Enoxaparin 40 MG/0.4 ML SYR SUBCUT SCH (17:44)
[2021-02-15] MEDS ORDERED: Furosemide 20 mg/2 ml IV VIAL IV ONE (20:27)
[2021-02-15] MEDS ORDERED: Albuterol HFA INHALER 8 gm MDI INH ONE (20:28)
[2021-02-15] MEDS ORDERED: Albuterol HFA INHALER 8 gm MDI INH PRN (20:30)
[2021-02-15] MEDS: ZOSYN 3.375 GM Q8H per EXTENDED INFUSION IV SCH (22:00)
[2021-02-15] MEDS ORDERED: Vancomycin 1,500 MG in NS 0.9% 250 ml 250 ML IVPB ONE (22:00)
[2021-02-15] MEDS ORDERED: Vancomycin per Pharmacy 1 EA NOTE FOLLOW UP SCH (22:00)
[2021-02-15 22:43] LABS: PCO2 Arterial 37 mmHg (35-45); PO2 Arterial 79 mmHg (80-100)
[2021-02-15] MEDS ORDERED: Albuterol 2.5mg/3 ml (0.083%) NEB.SOLN INH PRN (22:51)
[2021-02-16] MEDS: ZOSYN 3.375 GM Q8H per EXTENDED INFUSION IV SCH ×3 (06:24→22:30)
[2021-02-16] MEDS: Mometasone/Formoter 200/5 MDI INH SCH ×2 (09:01→20:54)
[2021-02-16 10:03] LABS: Hepatitis Be Antigen Positive (Negative)
[2021-02-16 10:33] LABS: Hematocrit 25 % (42-52); Hemoglobin 7.8 g/dL (14.0-18.0); Mean Corpuscular HGB Conc 32 g/dL (31-36); Mean Corpuscular Hemoglobin 23 pg (27-31); Mean Corpuscular Volume 73 fL (80-94); Red Blood Count 3.37 10^6 /uL (4.18-5.48); Red Cell Distribution Width 24 % (10-15); White Blood Count 25.4 10^3/uL (3.5-10.8)
[2021-02-16 10:47] LABS: Albumin 1.8 g/dL (3.2-5.2); Albumin/Globulin Ratio 0.9 (1-3); Calcium 8.4 mg/dL (8.6-10.3); Direct Bilirubin 3.6 mg/dL (0.03-0.18); Indirect Bilirubin 2.1 mg/dL (0.3-1.0); Magnesium 2.2 mg/dL (1.9-2.7); Potassium 3.7 mmol/L (3.5-5.0); Total Bilirubin 5.7 mg/dL (0.2-1.0); Total Protein 3.8 g/dL (6.4-8.9)
[2021-02-16 11:34] LABS: Anisocytosis 2+; Hypochromasia 1+; Microcytosis 1+; Polychromasia 1+; Target Cells 1+
[2021-02-16 11:36] LABS: ABS Lymphocytes 0.1 10^3/ul (1.0-4.8); ABS Monocytes 0.4 10^3/ul (0-0.8); ABS Neutrophils 24.8 10^3/ul (1.5-7.7); Eosinophil % 0.1 %; Lymphocyte % 0.4 %; Nucleated Red Blood Cells % 0.1; Platelet Count 98 10^3/uL (150-450)
[2021-02-16 14:10] LABS: C Reactive Protein 273.43 mg/L (<8.01)
[2021-02-16] MEDS ORDERED: Vancomycin 750 MG in NS 0.9% 250 ML IVPB SCH (14:30)
[2021-02-16] MEDS: Azithromycin 500 mg/250 ml NS 500 MG/250 ML BAG IVPB SCH (15:57)
[2021-02-16 17:02] LABS: Fibrinogen 494.7 mg/dL (110.8-404.3); INR 1.52 (0.86-1.15)
[2021-02-16 17:45] LABS: Hepatitis B DNA Quantitative 77600000 IU/mL (Undetected)
[2021-02-16 19:04] LABS: PCO2 Arterial 38 mmHg (35-45); PO2 Arterial 92 mmHg (80-100)
[2021-02-16 22:14] LABS: Ferritin 2412.6 ng/mL (24-336)
[2021-02-17] MEDS: ZOSYN 3.375 GM Q8H per EXTENDED INFUSION IV SCH ×3 (03:47→19:50)
[2021-02-17 05:57] LABS: INR 1.68 (0.86-1.15)
[2021-02-17 06:02] LABS: Hematocrit 25 % (42-52); Hemoglobin 7.7 g/dL (14.0-18.0); Mean Corpuscular HGB Conc 31 g/dL (31-36); Mean Corpuscular Hemoglobin 22 pg (27-31); Mean Corpuscular Volume 72 fL (80-94); Red Blood Count 3.42 10^6 /uL (4.18-5.48); Red Cell Distribution Width 24 % (10-15); White Blood Count 27.2 10^3/uL (3.5-10.8)
[2021-02-17 06:19] LABS: Albumin 1.8 g/dL (3.2-5.2); Albumin/Globulin Ratio 0.9 (1-3); Calcium 8.7 mg/dL (8.6-10.3); Direct Bilirubin 3.9 mg/dL (0.03-0.18); Globulin 1.9 g/dL (2-4); Indirect Bilirubin 2.4 mg/dL (0.3-1.0); Magnesium 2.3 mg/dL (1.9-2.7); Potassium 3.9 mmol/L (3.5-5.0); Total Bilirubin 6.3 mg/dL (0.2-1.0); Total Protein 3.7 g/dL (6.4-8.9)
[2021-02-17 06:31] LABS: ABS Basophils 0.1 10^3/ul (0-0.2); ABS Lymphocytes 0.2 10^3/ul (1.0-4.8); ABS Monocytes 0.6 10^3/ul (0-0.8); ABS Neutrophils 26.3 10^3/ul (1.5-7.7); Lymphocyte % 0.8 %; Platelet Count Platelets clumped. 10^3/uL (150-450)
[2021-02-17 07:47] LABS: Mean Platelet Volume 9.8 fL (7.4-10.4); Platelet Count 93 10^3/uL (150-450)
[2021-02-17] MEDS: Mometasone/Formoter 200/5 MDI INH SCH ×2 (08:10→21:10)
[2021-02-17] MEDS ORDERED: Vancomycin Trough Check NOTE FOLLOW UP ONE (14:00)
[2021-02-17] MEDS: Azithromycin 500 mg/250 ml NS 500 MG/250 ML BAG IVPB SCH (15:46)
[2021-02-17] MEDS ORDERED: Azithromycin 500 mg/250 ml NS 500 MG/250 ML BAG IVPB SCH (16:00)
[2021-02-17 17:13] LABS: Body Fluid Source Pleural Fluid
[2021-02-17 19:10] LABS: Body Fluid WBC 2666 /mcL
[2021-02-17 20:14] LABS: Body Fluid Appearance Clear
[2021-02-17 20:15] LABS: Body Fluid Color Yellow
[2021-02-17 21:09] LABS: Body Fluid Mono 5 %; Body Fluid NRBC 5; Body Fluid Total Cells Counted 200
[2021-02-18] MEDS: Albuterol HFA INHALER 8 gm MDI INH PRN ×2 (00:52→05:16)
[2021-02-18] MEDS: ZOSYN 3.375 GM Q8H per EXTENDED INFUSION IV SCH ×2 (05:09→13:48)
[2021-02-18] MEDS: Mometasone/Formoter 200/5 MDI INH SCH ×2 (08:51→20:58)
[2021-02-18 10:25] LABS: Hematocrit 24 % (42-52); Hemoglobin 7.6 g/dL (14.0-18.0); Mean Corpuscular HGB Conc 32 g/dL (31-36); Mean Corpuscular Hemoglobin 23 pg (27-31); Mean Corpuscular Volume 71 fL (80-94); Red Blood Count 3.34 10^6 /uL (4.18-5.48); Red Cell Distribution Width 25 % (10-15); White Blood Count 24.2 10^3/uL (3.5-10.8)
[2021-02-18 10:29] LABS: INR 1.6 (0.86-1.15)
[2021-02-18 10:40] LABS: Albumin 1.7 g/dL (3.2-5.2); Albumin/Globulin Ratio 0.9 (1-3); Calcium 8.4 mg/dL (8.6-10.3); Magnesium 2.3 mg/dL (1.9-2.7); Phosphorus 4.8 mg/dL (2.5-5.0); Potassium 3.8 mmol/L (3.5-5.0); Total Bilirubin 7.1 mg/dL (0.2-1.0); Total Protein 3.7 g/dL (6.4-8.9)
[2021-02-18 11:00] LABS: Platelet Count 84 10^3/uL (150-450)
[2021-02-18 11:01] LABS: ABS Lymphocytes 0.3 10^3/ul (1.0-4.8); ABS Monocytes 0.4 10^3/ul (0-0.8); ABS Neutrophils 23.5 10^3/ul (1.5-7.7); Hypochromasia 1+; Large Platelets Present; Lymphocyte % 1.1 %; Mean Platelet Volume 10.4 fL (7.4-10.4); Microcytosis 1+; Polychromasia 1+; Target Cells 3+
[2021-02-18 11:27] LABS: HIV 4th Generation Nonreactive (Nonreactive)
[2021-02-18] MEDS: Cefepime 2 GM in Dextrose 2 GM/50 ML BAG IV SCH (16:18)
[2021-02-18] MEDS ORDERED: Phytonadione Oral Solution 5 MG/25 ML UDC PO ONE (17:15)
[2021-02-19] MEDS: Cefepime 2 GM in Dextrose 2 GM/50 ML BAG IV SCH ×2 (03:32→16:42)
[2021-02-19 06:12] LABS: INR 1.53 (0.86-1.15)
[2021-02-19 06:29] LABS: Albumin 1.7 g/dL (3.2-5.2); Albumin/Globulin Ratio 0.9 (1-3); Calcium 8.1 mg/dL (8.6-10.3); Direct Bilirubin 5.4 mg/dL (0.03-0.18); Globulin 1.9 g/dL (2-4); Indirect Bilirubin 2.3 mg/dL (0.3-1.0); Magnesium 2.3 mg/dL (1.9-2.7); Total Bilirubin 7.7 mg/dL (0.2-1.0); Total Protein 3.6 g/dL (6.4-8.9)
[2021-02-19 06:59] LABS: Hematocrit 24 % (42-52); Hemoglobin 7.3 g/dL (14.0-18.0); Mean Corpuscular HGB Conc 31 g/dL (31-36); Mean Corpuscular Hemoglobin 22 pg (27-31); Mean Corpuscular Volume 72 fL (80-94); Red Blood Count 3.28 10^6 /uL (4.18-5.48); Red Cell Distribution Width 25 % (10-15); White Blood Count 25.9 10^3/uL (3.5-10.8)
[2021-02-19] MEDS: Albuterol HFA INHALER 8 gm MDI INH PRN (08:21)
[2021-02-19 08:25] LABS: ABS Lymphocytes 0.2 10^3/ul (1.0-4.8); ABS Monocytes 0.9 10^3/ul (0-0.8); ABS Neutrophils 24.8 10^3/ul (1.5-7.7); Large Platelets Present; Lymphocyte % 0.7 %; Platelet Count 70 10^3/uL (150-450)
[2021-02-19] MEDS: Mometasone/Formoter 200/5 MDI INH SCH ×3 (08:30→22:07)
[2021-02-19] MEDS ORDERED: Vancomycin per Pharmacy 1 EA NOTE FOLLOW UP SCH (11:00)
[2021-02-19 11:10] LABS: C Reactive Protein 259.24 mg/L (<8.01)
[2021-02-19] MEDS: metroNIDAZOLE IV 500 MG/100ML 500 MG/100 ML BAG IVPB SCH ×2 (12:25→21:05)
[2021-02-19 12:33] LABS: Ceruloplasmin 46.8 mg/dL
[2021-02-19] MEDS ORDERED: Phytonadione Oral Solution 5 MG/25 ML UDC PO ONE (12:59)
[2021-02-19] MEDS ORDERED: Vancomycin 1,500 MG in NS 0.9% 250 ml 250 ML IVPB ONE (13:00)
[2021-02-20] MEDS: Vancomycin 750 MG in NS 0.9% 250 ml 250 ML IVPB SCH ×2 (02:04→14:24)
[2021-02-20] MEDS: Cefepime 2 GM in Dextrose 2 GM/50 ML BAG IV SCH ×2 (04:43→16:18)
[2021-02-20] MEDS: metroNIDAZOLE IV 500 MG/100ML 500 MG/100 ML BAG IVPB SCH ×3 (05:39→20:10)
[2021-02-20 07:42] LABS: INR 1.73 (0.86-1.15)
[2021-02-20 07:50] LABS: ALT 74 U/L (7-52); AST 84 U/L (13-39); Albumin < 1.7 g/dL (3.2-5.2); Albumin/Globulin Ratio 0.9 (1-3); Alkaline Phosphatase 673 U/L (35-149); Blood Urea Nitrogen 73 mg/dL (6-24); CO2 Carbon Dioxide 23 mmol/L (22-32); Calcium 7.5 mg/dL (8.6-10.3); Chloride 111 mmol/L (101-111); Globulin 1.8 g/dL (2-4); Glucose 207 mg/dL (70-100); Indirect Bilirubin 2.5 mg/dL (0.3-1.0); Magnesium 2.5 mg/dL (1.9-2.7); Potassium 3.8 mmol/L (3.5-5.0); Total Protein 3.5 g/dL (6.4-8.9)
[2021-02-20 07:51] LABS: Anion Gap 13 mmol/L (2-11); Sodium 147 mmol/L (135-145)
[2021-02-20] MEDS ORDERED: Lactated Ringers 1000 ml BAG 1,000 ML IV ONE ×3 (07:57→17:20)
[2021-02-20 08:01] LABS: Hematocrit 22 % (42-52); Mean Corpuscular HGB Conc 32 g/dL (31-36); Mean Corpuscular Hemoglobin 22 pg (27-31); Mean Corpuscular Volume 71 fL (80-94); Platelet Count 97 10^3/uL (150-450); Red Blood Count 3.11 10^6 /uL (4.18-5.48); Red Cell Distribution Width 25 % (10-15); White Blood Count 24.2 10^3/uL (3.5-10.8)
[2021-02-20] MEDS: Mometasone/Formoter 200/5 MDI INH SCH ×2 (08:15→21:03)
[2021-02-20] MEDS: Vancomycin 750 MG in NS 0.9% 250 ML IVPB SCH (11:31)
[2021-02-20 11:59] LABS: Glucose, BF 190 mg/dL
[2021-02-20 12:00] LABS: Albumin, BF 0.5 g/dL; Fluid Type, Albumin PLEURAL
[2021-02-20 12:03] LABS: Lactate Dehydrogenase, BF 345 U/L
[2021-02-20 12:05] LABS: Fluid Type, Protein, Total PLEURAL; Total Protein, BF 0.9 g/dL
[2021-02-20 13:33] LABS: Mitochondria M2 Antibody <0.1 U
[2021-02-20 14:50] LABS: TB1 Ag minus Nil Result 0.01 IU/mL; TB2 Ag minus Nil Result 0.02 IU/mL
[2021-02-20 14:52] LABS: QuantiferonTb Gold Plus Result Indeterminate (Negative)
[2021-02-20] MEDS: Lactulose 30 ml UDC PO SCH (16:18)
[2021-02-20 17:41] LABS: JO-1 Antibody <0.2 U; RNP Antibody, IgG 0.2 U; SS-A/Ro Antibody <0.2 U; SS-B/La Antibody <0.2 U; Sm (Smith) IgG Antibody <0.2 U
[2021-02-20 18:01] LABS: Alpha 1 Antitrypsin A1A 397 mg/dL (100 - 190)
[2021-02-20 18:16] LABS: Hepatitis D Antibody Negative (Negative)
[2021-02-20 19:28] LABS: Complement C3 168 mg/dL (75 - 175)
[2021-02-21] MEDS: Cefepime 2 GM in Dextrose 2 GM/50 ML BAG IV SCH ×3 (03:09→22:31)
[2021-02-21] MEDS: metroNIDAZOLE IV 500 MG/100ML 500 MG/100 ML BAG IVPB SCH ×3 (04:05→22:37)
[2021-02-21 07:06] LABS: INR 1.84 (0.86-1.15)
[2021-02-21 07:17] LABS: Albumin 1.7 g/dL (3.2-5.2); Albumin/Globulin Ratio 0.9 (1-3); Calcium 7.4 mg/dL (8.6-10.3); Globulin 1.8 g/dL (2-4); Magnesium 2.4 mg/dL (1.9-2.7); Phosphorus 5.4 mg/dL (2.5-5.0); Potassium 3.8 mmol/L (3.5-5.0); Total Bilirubin 8.9 mg/dL (0.2-1.0); Total Protein 3.5 g/dL (6.4-8.9)
[2021-02-21 07:25] LABS: Hematocrit 23 % (42-52); Hemoglobin 7.2 g/dL (14.0-18.0); Mean Corpuscular HGB Conc 31 g/dL (31-36); Mean Corpuscular Hemoglobin 22 pg (27-31); Mean Corpuscular Volume 72 fL (80-94); Red Blood Count 3.25 10^6 /uL (4.18-5.48); Red Cell Distribution Width 25 % (10-15); White Blood Count 23.1 10^3/uL (3.5-10.8)
[2021-02-21 07:26] LABS: ABS Lymphocytes 0.2 10^3/ul (1.0-4.8); ABS Monocytes 0.4 10^3/ul (0-0.8); ABS Neutrophils 22.5 10^3/ul (1.5-7.7); Lymphocyte % 0.8 %
[2021-02-21] MEDS: Lactulose 30 ml UDC PO SCH ×4 (08:02→21:31)
[2021-02-21] MEDS ORDERED: Calcium Carbonate LIQ 1,250 mg/5 ml UDC PO ONE (08:12)
[2021-02-21] MEDS ORDERED: Lactated Ringers 1000 ml BAG 1,000 ML IV ONE ×2 (08:14→23:20)
[2021-02-21 09:10] LABS: Mean Platelet Volume 10.8 fL (7.4-10.4); Platelet Count 83 10^3/uL (150-450)
[2021-02-21] MEDS: Mometasone/Formoter 200/5 MDI INH SCH ×2 (09:26→21:34)
[2021-02-21] MEDS: Calcium Citrate 200 mg TAB PO SCH (11:16)
[2021-02-21 12:49] LABS: Toxoplasma IgG Antibody Negative (Negative); Toxoplasma IgG Antibody Index <3 IU/mL; Toxoplasma IgM Antibody Negative (Negative)
[2021-02-21 13:10] LABS: Cryoglobulin Negative %ppt (Negative)
[2021-02-21] MEDS ORDERED: Vancomycin Trough Check NOTE FOLLOW UP ONE (13:30)
[2021-02-21 15:27] LABS: Calcium 7.5 mg/dL (8.6-10.3); Potassium 3.7 mmol/L (3.5-5.0)
[2021-02-21] MEDS ORDERED: Lactated Ringers 1000 ml BAG 1,000 ML IV SCH (18:00)
[2021-02-22] MEDS ORDERED: Albumin Human 25% 25 GM/100 ML BTL IV ONE (01:30)
[2021-02-22] MEDS: metroNIDAZOLE IV 500 MG/100ML 500 MG/100 ML BAG IVPB SCH ×2 (05:12→12:35)
[2021-02-22 07:46] LABS: INR 1.99 (0.86-1.15)
[2021-02-22 07:56] LABS: ALT 64 U/L (7-52); AST 50 U/L (13-39); Albumin < 1.7 g/dL (3.2-5.2); Albumin/Globulin Ratio 1.1 (1-3); Alkaline Phosphatase 824 U/L (35-149); Blood Urea Nitrogen 88 mg/dL (6-24); CO2 Carbon Dioxide 22 mmol/L (22-32); Calcium 7.5 mg/dL (8.6-10.3); Globulin 1.5 g/dL (2-4); Glucose 188 mg/dL (70-100); Magnesium 2.5 mg/dL (1.9-2.7); Potassium 3.4 mmol/L (3.5-5.0); Total Protein 3.2 g/dL (6.4-8.9)
[2021-02-22 08:00] LABS: Anion Gap 12 mmol/L (2-11); Chloride 114 mmol/L (101-111); Sodium 148 mmol/L (135-145)
[2021-02-22 08:30] VITALS: BP 88/47
[2021-02-22] MEDS: Lactulose 30 ml UDC PO SCH (08:59)
[2021-02-22] MEDS: Calcium Citrate 200 mg TAB PO SCH (09:00)
[2021-02-22 09:01] LABS: Venous Bicarbonate HCO3 22.6 mmol/L (24-28)
[2021-02-22] MEDS ORDERED: Morphine ORAL CONCENTRATE 5 MG/0.25 ML ORAL.SYRIN SL PRN (09:54)
[2021-02-22] MEDS ORDERED: Atropine 1% (ORAL/SL) 15 ML BTL SL PRN (09:55)
[2021-02-22] MEDS ORDERED: Ondansetron ODT 4 mg TAB 4 MG TAB SL PRN (09:57)
[2021-02-22] MEDS: Mometasone/Formoter 200/5 MDI INH SCH (09:59)
[2021-02-22] MEDS ORDERED: Cefepime 2 GM in Dextrose 2 GM/50 ML BAG IV SCH (10:00)
[2021-02-22] MEDS ORDERED: CMCS:Entecavir 0.5 mg TAB (NF) PO SCH (15:00)
[2021-02-22 18:17] LABS: Tissue Transglutaminase IgA Ab <1.2 U/mL; Tissue Transglutaminase IgG Ab <1.2 U/mL
[2021-02-22 22:41] LABS: Immunoglobulin A 33 mg/dL (61 - 356)
[2021-02-23] MEDS: Morphine ORAL CONCENTRATE 5 MG/0.25 ML ORAL.SYRIN SL PRN (00:40)
[2021-02-23 04:12] LABS: Hepatitis B Core IgM Nonreactive (Nonreactive)
[2021-02-24] MEDS: Morphine ORAL CONCENTRATE 5 MG/0.25 ML ORAL.SYRIN SL PRN ×2 (09:38→12:01)
[2021-02-24 13:28] LABS: Hemochromatosis Result Summary NEGATIVE; Hemochromatosis Specimen WB Whole Blood
[2021-02-24] MEDS ORDERED: Pantoprazole VIAL 40 MG VIAL IV SCH (14:00)
== END 2021-02-24 15:21 | disposition expired | DRG 441 ==
LOC: ED 10:50 → MEDTELE 16:09 → SUATTDRO 16:09 → MEDTELE 18:24
PROVIDERS: ADMIT Hospitalist; ATTEND Internal Medicine